=== PATIENT | female | born 1950 | race African-American/Black ===

== ENCOUNTER 2017-08-23 21:23 | Observation (INO) | payer OTHER, MEDICARE ==
[~2017-08-23] VITALS: Ht 170.2 cm; Wt 124.0 kg
[2017-08-23 22:14] LABS: BASOPHILS % (AUTO) 0.6 % (0.0-5.0); EOSINOPHILS % (AUTO) 1.8 % (0.0-8.0); HEMATOCRIT 44.8 % (36-48); LYMPHOCYTES % (AUTO) 17.9 % (21.0-51.0); MEAN CORPUSCULAR HEMOGLOBIN 26.8 pg (27.0-33.0); MEAN CORPUSCULAR HGB CONC 33.2 g/dL (32.0-36.0); MEAN CORPUSCULAR VOLUME 80.7 fL (79-99); MONOCYTES % (AUTO) 6.6 % (3.0-13.0); NEUTROPHILS % (AUTO) 73.1 % (40.0-77.0); PLATELET COUNT (AUTO) 301 K/uL (130-400); RED BLOOD CELL COUNT(AUTO) 5.55 MIL/uL (4.00-5.50); RED CELL DISTRIBUTION WIDTH 15.5 % (11.0-15.5); WHITE BLOOD COUNT (AUTO) 11.4 K/uL (4.8-10.8)
[2017-08-23 22:27] LABS: INR 0.96 (0.85-1.15); PARTIAL THROMBOPLASTIN TIME 29.2 SEC (26.3-35.5); POTASSIUM 3.5 mmol/L (3.5-5.1); PROTHROMBIN TIME 10.1 SEC (9.6-11.6)
[2017-08-23] MEDS ORDERED: MORPHINE SULFATE 4 MG/1ML SYG ONE (22:34)
[2017-08-23] MEDS ORDERED: ONDANSETRON HCL 4 MG/2 ML VIAL ONE (22:34)
[2017-08-23 22:40] LABS: ALBUMIN 3.1 g/dL (3.5-5.0); BILIRUBIN,TOTAL 0.4 mg/dL (0.2-1.0); CREATINE KINASE MB 1.3 ng/mL (0.5-3.6); TOTAL PROTEIN, SERUM 6.8 g/dL (6.0-8.3)
[2017-08-23] MEDS ORDERED: IOPAMIDOL-370 100 ML VIAL IV ONE (23:11)
[2017-08-24] VITALS (7 sets, daily range): BP systolic 118–140; BP diastolic 60–89
[2017-08-24] MEDS ORDERED: GUAIFENESIN-DM 200/20 MG 10 ML PO PRN (01:00)
[2017-08-24] MEDS ORDERED: MORPHINE SULFATE 2 MG/ML 1ML SYG IV PRN (01:00)
[2017-08-24] MEDS ORDERED: LEVOFLOXACIN 500 MG/D5W 100 ML 100 ML IV SCH (01:00)
[2017-08-24] MEDS ORDERED: HYDRALAZINE HCL 20 MG/ML VIAL IV PRN (01:00)
[2017-08-24] MEDS ORDERED: ACETAMINOPHEN 325 MG TAB PO PRN (01:00)
[2017-08-24] MEDS ORDERED: LEVOFLOXACIN 500 MG/D5W 100 ML 100 ML ONE (02:01)
[2017-08-24] MEDS ORDERED: MORPHINE SULFATE 4 MG/1ML SYG ONE ×2 (02:57→09:23)
[2017-08-24] MEDS: IPRATROPIUM/ALBUTEROL SULFATE 3 ML SOLUTION IH SCH ×3 (06:42→19:08)
[2017-08-24] MEDS: NICOTINE 14 MG/ 24 HR PATCH TD SCH (09:12)
[2017-08-24] MEDS: PANTOPRAZOLE SODIUM 40 MG TABLET.DR PO SCH ×2 (09:13→20:44)
[2017-08-24] MEDS: BENZONATATE 100 MG CAPSULE PO SCH ×3 (09:13→20:44)
[2017-08-24] MEDS: ENOXAPARIN SODIUM 40 MG/0.4 ML SYRINGE SQ SCH (09:14)
[2017-08-24] MEDS ORDERED: SODIUM CHLORIDE 0.9% 250 ML IV ONE (09:17)
[2017-08-24] MEDS ORDERED: NITR0.4T50 SL (13:48)
[2017-08-24] MEDS ORDERED: CYCL10 PO (13:48)
[2017-08-24] MEDS ORDERED: NAPR-1023 PO (13:48)
[2017-08-24] MEDS ORDERED: CLOP75TA14 PO (13:48)
[2017-08-24] MEDS ORDERED: CARV25TA77 PO (13:48)
[2017-08-24] MEDS ORDERED: LISI-613 PO (13:48)
[2017-08-24] MEDS ORDERED: ATOR80TA PO (13:48)
[2017-08-24] MEDS ORDERED: TYL3 PO (13:48)
[2017-08-24] MEDS: ACETAMINOPHEN 325 MG TAB PO PRN (14:46)
[2017-08-24] MEDS: NITROGLYCERIN 1GM/1 INCH PACKET TD SCH ×2 (16:34→23:10)
[2017-08-24] MEDS: DOXYCYCLINE HYCLATE 100 MG TABLET PO SCH (20:44)
[2017-08-24] MEDS: METOPROLOL TARTRATE 25 MG TAB PO SCH (20:44)
[2017-08-24 21:29] LABS: CREATINE KINASE, TOTAL 68 U/L (21-232); MYOGLOBIN 30 ng/mL (10-92); TROPONIN I < 0.04 ng/mL (0.00-0.06)
[2017-08-25] MEDS: IPRATROPIUM/ALBUTEROL SULFATE 3 ML SOLUTION IH SCH ×5 (02:02→23:55)
[2017-08-25 03:43] VITALS: BP 144/70
[2017-08-25] MEDS: ACETAMINOPHEN 325 MG TAB PO PRN (04:02)
[2017-08-25] MEDS: NITROGLYCERIN 1GM/1 INCH PACKET TD SCH ×2 (06:21→14:52)
[2017-08-25 06:54] LABS: HEMATOCRIT 42.1 % (36-48); MEAN CORPUSCULAR HGB CONC 33.1 g/dL (32.0-36.0); MEAN CORPUSCULAR VOLUME 81.6 fL (79-99); PLATELET COUNT (AUTO) 286 K/uL (130-400); RED BLOOD CELL COUNT(AUTO) 5.17 MIL/uL (4.00-5.50); RED CELL DISTRIBUTION WIDTH 15.7 % (11.0-15.5); WHITE BLOOD COUNT (AUTO) 9.4 K/uL (4.8-10.8)
[2017-08-25 07:00] LABS: HEMOGLOBIN A1C 5.9 % (4.0-6.0)
[2017-08-25 07:14] LABS: POTASSIUM 4.1 mmol/L (3.5-5.1); THYROID STIMULATING HORMONE 0.88 uIU/mL (0.36-3.74)
[2017-08-25 08:00] VITALS: BP 146/84
[2017-08-25 09:47] LABS: CREATINE KINASE MB 0.5 ng/mL (0.5-3.6); CREATINE KINASE, TOTAL 55 U/L (21-232); MYOGLOBIN 32 ng/mL (10-92); TROPONIN I < 0.04 ng/mL (0.00-0.06)
[2017-08-25 11:00] VITALS: BP 139/79
[2017-08-25] MEDS: ASPIRIN 325MG EC TAB 325 MG TABLET.DR PO SCH (11:23)
[2017-08-25] MEDS: PREDNISONE 20 MG TABLET PO SCH (11:23)
[2017-08-25] MEDS: PANTOPRAZOLE SODIUM 40 MG TABLET.DR PO SCH (11:23)
[2017-08-25] MEDS: METOPROLOL TARTRATE 25 MG TAB PO SCH ×2 (11:24→20:55)
[2017-08-25] MEDS: BENZONATATE 100 MG CAPSULE PO SCH ×3 (11:24→20:55)
[2017-08-25] MEDS: DOXYCYCLINE HYCLATE 100 MG TABLET PO SCH ×2 (11:24→20:55)
[2017-08-25] MEDS: NICOTINE 14 MG/ 24 HR PATCH TD SCH (11:27)
[2017-08-25] MEDS: ENOXAPARIN SODIUM 40 MG/0.4 ML SYRINGE SQ SCH (13:47)
[2017-08-25] MEDS ORDERED: MORPHINE SULFATE 4 MG/1ML SYG ONE (14:04)
[2017-08-25] MEDS: ONDANSETRON HCL 4 MG/2 ML VIAL IV PRN (14:47)
[2017-08-25 16:00] VITALS: BP 155/73
[2017-08-25 20:00] VITALS: BP 130/64
[2017-08-25] MEDS: MORPHINE SULFATE 4 MG/1ML SYG IV PRN (20:56)
[2017-08-25 21:45] LABS: CREATINE KINASE, TOTAL 61 U/L (21-232); MYOGLOBIN 24 ng/mL (10-92); TROPONIN I < 0.04 ng/mL (0.00-0.06)
[2017-08-26] VITALS: BP 111/68
[2017-08-26] MEDS: ACETAMINOPHEN 325 MG TAB PO PRN ×2 (00:18→21:41)
[2017-08-26] MEDS: NITROGLYCERIN 1GM/1 INCH PACKET TD SCH ×4 (00:28→22:58)
[2017-08-26] MEDS: MORPHINE SULFATE 4 MG/1ML SYG IV PRN ×4 (01:07→20:46)
[2017-08-26 04:00] VITALS: BP 107/70
[2017-08-26] MEDS: IPRATROPIUM/ALBUTEROL SULFATE 3 ML SOLUTION IH SCH ×3 (06:00→18:00)
[2017-08-26 08:00] VITALS: BP 113/67
[2017-08-26] MEDS: DOXYCYCLINE HYCLATE 100 MG TABLET PO SCH ×2 (09:49→20:32)
[2017-08-26] MEDS: ASPIRIN 325MG EC TAB 325 MG TABLET.DR PO SCH (09:50)
[2017-08-26] MEDS: PREDNISONE 20 MG TABLET PO SCH (09:50)
[2017-08-26] MEDS: ONDANSETRON HCL 4 MG/2 ML VIAL IV PRN (09:50)
[2017-08-26] MEDS: METOPROLOL TARTRATE 25 MG TAB PO SCH ×2 (09:52→20:32)
[2017-08-26] MEDS: BENZONATATE 100 MG CAPSULE PO SCH ×3 (09:52→20:32)
[2017-08-26] MEDS: NICOTINE 14 MG/ 24 HR PATCH TD SCH (09:54)
[2017-08-26] MEDS: ENOXAPARIN SODIUM 40 MG/0.4 ML SYRINGE SQ SCH (10:01)
[2017-08-26 11:00] VITALS: BP 143/99
[2017-08-26 16:00] VITALS: BP 135/95
[2017-08-26 20:00] VITALS: BP 127/66
[2017-08-27] VITALS: BP 130/68
[2017-08-27] MEDS: MORPHINE SULFATE 4 MG/1ML SYG IV PRN ×2 (02:21→13:45)
[2017-08-27 04:00] VITALS: BP 148/83
[2017-08-27] MEDS: NITROGLYCERIN 1GM/1 INCH PACKET TD SCH (06:33)
[2017-08-27] MEDS: IPRATROPIUM/ALBUTEROL SULFATE 3 ML SOLUTION IH SCH ×3 (06:47→11:27)
[2017-08-27 07:00] VITALS: BP 157/90
[2017-08-27] MEDS ORDERED: DOXY100T2 PO (08:37)
[2017-08-27] MEDS ORDERED: PRED20TA3 PO (08:37)
[2017-08-27] MEDS ORDERED: BENZ-51 PO (08:37)
[2017-08-27] MEDS: ENOXAPARIN SODIUM 40 MG/0.4 ML SYRINGE SQ SCH (09:00)
[2017-08-27] MEDS: ASPIRIN 325MG EC TAB 325 MG TABLET.DR PO SCH (09:36)
[2017-08-27] MEDS: NICOTINE 14 MG/ 24 HR PATCH TD SCH (09:36)
[2017-08-27] MEDS: PREDNISONE 20 MG TABLET PO SCH (09:37)
[2017-08-27] MEDS: METOPROLOL TARTRATE 25 MG TAB PO SCH (09:37)
[2017-08-27] MEDS: DOXYCYCLINE HYCLATE 100 MG TABLET PO SCH (09:37)
[2017-08-27] MEDS: BENZONATATE 100 MG CAPSULE PO SCH ×2 (09:37→13:46)
[2017-08-27] MEDS: PANTOPRAZOLE SODIUM 40 MG TABLET.DR PO SCH (10:41)
[2017-08-27 11:00] VITALS: BP 114/63
== END 2017-08-27 16:25 ==
LOC: EDH 21:23 → EDHIP 08-24 00:35 → 3DH 08-24 01:25
PROVIDERS: ADMIT Family Medicine; ATTEND Family Medicine
DX: R07.89 Other chest pain (principal); I10 Essential (primary) hypertension; E78.5 Hyperlipidemia, unspecified; R79.1 Abnormal coagulation profile; D72.829 Elevated white blood cell count, unspecified; J84.112 Idiopathic pulmonary fibrosis; E66.01 Morbid (severe) obesity due to excess calories; J44.1 Chronic obstructive pulmonary disease with (acute) exacerbation; I25.10 Atherosclerotic heart disease of native coronary artery without angina pectoris; F17.210 Nicotine dependence, cigarettes, uncomplicated; Z82.49 Family history of ischemic heart disease and other diseases of the circulatory system; Z95.5 Presence of coronary angioplasty implant and graft
CPT/HCPCS: 36415 ×3; 71045; 71275; 80048; 80053; 80061; 82550 ×4; 82553 ×4; 83036; 83874 ×4; 84443; 84484 ×4; 85025; 85027; 85378; 85610; 85730; 87040 ×2; 87088; 87449; 87633; 93005; 93306; 94640 ×11; 94664; 96372 ×3; 96374; 96375; 96376 ×2; 97116; 97161; 99285; A6250 ×2; G0378 ×88; G8978; G8979; G8980; G8981; G8982; G8983; J1650 ×3; J1956 ×2; J2270 ×11; J2405 ×3; J7030; Q9967

== ENCOUNTER 2017-09-29 00:50 | Emergency (ER) | payer OTHER, MEDICARE ==
[~2017-09-29 00:50] MED LIST: ATOR80TA PO; BENZ-51 PO; CARV25TA77 PO; CLOP75TA14 PO; CYCL10 PO; DOXY100T2 PO; LISI-613 PO; NAPR-1023 PO; NITR0.4T50 SL; PRED20TA3 PO; TYL3 PO
[2017-09-29] MEDS ORDERED: KETOROLAC TROMETHAMINE 15MG/ML ONE (01:43)
[2017-09-29 02:11] LABS: CREATINE KINASE MB 1.1 ng/mL (0.5-3.6)
== END 2017-09-29 05:57 | disposition home or self-care (01) ==
LOC: EDH 00:50
DX: M25.512 Pain in left shoulder (principal); M25.561 Pain in right knee; M54.5 Low back pain; M25.552 Pain in left hip; R07.9 Chest pain, unspecified; I25.10 Atherosclerotic heart disease of native coronary artery without angina pectoris; E78.5 Hyperlipidemia, unspecified; I10 Essential (primary) hypertension; I25.2 Old myocardial infarction; M19.90 Unspecified osteoarthritis, unspecified site; Z72.0 Tobacco use; W01.0XXA Fall on same level from slipping, tripping and stumbling without subsequent striking against object, initial encounter; Y93.01 Activity, walking, marching and hiking; Y92.89 Other specified places as the place of occurrence of the external cause; Y99.8 Other external cause status
CPT/HCPCS: 36415; 72100; 73030; 73502; 73562 ×2; 82550; 82553; 84484; 93005; 96374; 99285; J1885

== ENCOUNTER 2017-10-04 21:40 | Emergency (ER) | payer OTHER, MEDICARE ==
[2017-10-04] MEDS ORDERED: ASPIRIN 325 MG TABLET ONE (22:06)
== END 2017-10-05 00:09 | disposition left against medical advice (07) ==
LOC: EDH 21:40
DX: F41.1 Generalized anxiety disorder (principal); R07.9 Chest pain, unspecified; I95.9 Hypotension, unspecified; M19.90 Unspecified osteoarthritis, unspecified site; I25.10 Atherosclerotic heart disease of native coronary artery without angina pectoris; E78.5 Hyperlipidemia, unspecified; I10 Essential (primary) hypertension; I25.2 Old myocardial infarction; Z72.0 Tobacco use
CPT/HCPCS: 93005

== ENCOUNTER 2017-10-28 23:29 | Emergency (ER) | payer OTHER, MEDICARE ==
[2017-10-28] MEDS ORDERED: ASPIRIN 325 MG TABLET ONE (23:55)
[2017-10-29 00:14] LABS: EOSINOPHILS % (AUTO) 2.3 % (0.0-8.0); HEMATOCRIT 43.8 % (36-48); LYMPHOCYTES % (AUTO) 25.2 % (21.0-51.0); MEAN CORPUSCULAR HEMOGLOBIN 26.2 pg (27.0-33.0); MEAN CORPUSCULAR HGB CONC 32.9 g/dL (32.0-36.0); MEAN CORPUSCULAR VOLUME 79.6 fL (79-99); MONOCYTES % (AUTO) 8.8 % (3.0-13.0); NEUTROPHILS % (AUTO) 62.7 % (40.0-77.0); PLATELET COUNT (AUTO) 318 K/uL (130-400); RED CELL DISTRIBUTION WIDTH 15.8 % (11.0-15.5); WHITE BLOOD COUNT (AUTO) 10.5 K/uL (4.8-10.8)
[2017-10-29 00:22] LABS: CARBON DIOXIDE 29 mmol/L (21-32); CHLORIDE 106 mmol/L (101-111); CREATININE 0.9 mg/dL (0.5-1.5); GLOMERULAR FILTR. RATE CALC 80 mL/min (>60); GLUCOSE,RANDOM 104 mg/dL (70-105); POTASSIUM 4.3 mmol/L (3.5-5.1); SODIUM SERUM 142 mmol/L (136-145); UREA NITROGEN, BLOOD 16 mg/dL (7-18)
[2017-10-29 00:36] LABS: ALANINE AMINOTRANSFERASE 21 U/L (12-78); ALBUMIN 3.5 g/dL (3.5-5.0); ASPARTATE AMINOTRANSFERASE 24 U/L (10-37); BILIRUBIN,TOTAL 0.6 mg/dL (0.2-1.0); SALICYLATE 4.3 mg/dL (2.8-20.0); TOTAL PROTEIN, SERUM 7.4 g/dL (6.0-8.3)
[2017-10-29 00:41] LABS: ACETAMINOPHEN < 1 mcg/mL (10-30); ALCOHOL, BLOOD < 3 mg/dL (0-10)
[2017-10-29 03:03] LABS: APPEARANCE,URINE Clear (CLEAR); BILIRUBIN,URINE Negative (NEGATIVE); COLOR,URINE Dark Yellow (YELLOW); GLUCOSE, URINE (UA) Negative (NEGATIVE); KETONES,URINE Negative (NEGATIVE); LEUKOCYTE ESTERASE ,URINE Negative (NEGATIVE); NITRATE,URINE Negative (NEGATIVE); OCCULT BLOOD,URINE Negative (NEGATIVE); PROTEIN,URINE Negative (NEGATIVE)
[2017-10-29 03:11] LABS: AMPHET/METH SCREEN,URINE NEGATIVE (NEGATIVE); BARBITURATE SCREEN, URINE NEGATIVE (NEGATIVE); BENZODIAZEPINES SCREEN,URINE NEGATIVE (NEGATIVE); CANNABINOID SCREEN,URINE NEGATIVE (NEGATIVE); COCAINE SCREEN,URINE NEGATIVE (NEGATIVE); OPIATE SCREEN,URINE NEGATIVE (NEGATIVE); PHENCYCLIDINE SCREEN,URINE NEGATIVE (NEGATIVE)
== END 2017-10-29 11:47 | disposition home or self-care (01) ==
LOC: EDH 23:29
DX: R07.89 Other chest pain (principal); F22 Delusional disorders; I25.10 Atherosclerotic heart disease of native coronary artery without angina pectoris; E78.5 Hyperlipidemia, unspecified; I10 Essential (primary) hypertension; I25.2 Old myocardial infarction; M19.90 Unspecified osteoarthritis, unspecified site; Z72.0 Tobacco use
CPT/HCPCS: 36415; 80053; 80305; 81003; 82553; 84484; 85025; 93005 ×2; 99285; G0480 ×2; G0481

== ENCOUNTER 2017-10-31 23:44 | Inpatient (IN) | payer OTHER, MEDICARE ==
[~2017-10-31] VITALS: Ht 167.6 cm; Wt 124.7 kg
[2017-11-01] MEDS ORDERED: ASPIRIN 325 MG TABLET ONE (00:05)
[2017-11-01 00:22] LABS: BASOPHILS % (AUTO) 0.8 % (0.0-5.0); EOSINOPHILS % (AUTO) 3.7 % (0.0-8.0); HEMATOCRIT 43.2 % (36-48); LYMPHOCYTES % (AUTO) 29.8 % (21.0-51.0); MEAN CORPUSCULAR HEMOGLOBIN 26.3 pg (27.0-33.0); MEAN CORPUSCULAR HGB CONC 32.9 g/dL (32.0-36.0); MEAN CORPUSCULAR VOLUME 79.9 fL (79-99); MONOCYTES % (AUTO) 5.5 % (3.0-13.0); NEUTROPHILS % (AUTO) 60.2 % (40.0-77.0); PLATELET COUNT (AUTO) 311 K/uL (130-400); RED CELL DISTRIBUTION WIDTH 15.4 % (11.0-15.5); WHITE BLOOD COUNT (AUTO) 8.2 K/uL (4.8-10.8)
[2017-11-01 00:31] LABS: INR 0.96 (0.85-1.15); PROTHROMBIN TIME 10.1 SEC (9.6-11.6)
[2017-11-01 00:44] LABS: ALBUMIN 3.1 g/dL (3.5-5.0); BILIRUBIN,TOTAL 0.2 mg/dL (0.2-1.0); CREATINE KINASE MB 1.1 ng/mL (0.5-3.6); TOTAL PROTEIN, SERUM 6.5 g/dL (6.0-8.3)
[2017-11-01] MEDS ORDERED: HYDRALAZINE HCL 20 MG/ML VIAL IM PRN (03:45)
[2017-11-01] MEDS ORDERED: NITROGLYCERIN 1GM/1 INCH PACKET TD ONE (05:33)
[2017-11-01] MEDS: NITROGLYCERIN 1GM/1 INCH PACKET TD SCH ×3 (06:00→18:43)
[2017-11-01 06:32] LABS: CHOLESTEROL 171 mg/dL (<200); HDL CHOLESTEROL 54 mg/dL (35-85); LDL DIRECT 99 mg/dL (0-99); TRIGLYCERIDES 172 mg/dL (30-200)
[2017-11-01 08:49] LABS: CREATINE KINASE, TOTAL 71 U/L (21-232); MYOGLOBIN 28 ng/mL (10-92); TROPONIN I < 0.04 ng/mL (0.00-0.06)
[2017-11-01 09:25] VITALS: BP 150/103
[2017-11-01 10:15] VITALS: BP 144/83
[2017-11-01] MEDS: FAMOTIDINE 20MG TAB 20 MG TAB PO SCH (10:20)
[2017-11-01] MEDS: ATORVASTATIN CALCIUM 20 MG TABLET PO SCH (10:20)
[2017-11-01] MEDS: ASPIRIN 325MG EC TAB 325 MG TABLET.DR PO SCH (10:20)
[2017-11-01 11:46] LABS: CREATINE KINASE MB 0.8 ng/mL (0.5-3.6); CREATINE KINASE, TOTAL 52 U/L (21-232); MYOGLOBIN 30 ng/mL (10-92); TROPONIN I < 0.04 ng/mL (0.00-0.06)
[2017-11-01] MEDS: ENOXAPARIN SODIUM 40 MG/0.4 ML SYRINGE SQ SCH (12:24)
[2017-11-01] MEDS ORDERED: CYCLOBENZAPRINE HCL 10 MG TABLET PO PRN (14:45)
[2017-11-01] MEDS ORDERED: NITROGLYCERIN 0.4 MG SL TAB SL PRN (14:45)
[2017-11-01 15:47] VITALS: BP 145/75
[2017-11-01 19:54] VITALS: BP 145/74
[2017-11-01] MEDS: ATORVASTATIN CALCIUM 40 MG TABLET PO SCH (21:00)
[2017-11-01] MEDS: ZOLPIDEM TARTRATE 5 MG TAB PO PRN (21:08)
[2017-11-01] MEDS: CARVEDILOL 25 MG TABLET PO SCH (21:10)
[2017-11-01 23:52] VITALS: BP 144/84
[2017-11-02] MEDS: NITROGLYCERIN 1GM/1 INCH PACKET TD SCH ×4 (00:18→18:00)
[2017-11-02 04:00] VITALS: BP 148/92
[2017-11-02 07:30] VITALS: BP 120/88
[2017-11-02 07:30] LABS: HEMOGLOBIN A1C 6.1 % (4.0-6.0)
[2017-11-02] MEDS: LISINOPRIL 20 MG TABLET PO SCH (08:05)
[2017-11-02] MEDS: ATORVASTATIN CALCIUM 20 MG TABLET PO SCH (08:05)
[2017-11-02] MEDS: ASPIRIN 325MG EC TAB 325 MG TABLET.DR PO SCH (08:05)
[2017-11-02] MEDS: CARVEDILOL 25 MG TABLET PO SCH ×2 (08:08→20:32)
[2017-11-02] MEDS: ENOXAPARIN SODIUM 40 MG/0.4 ML SYRINGE SQ SCH (08:09)
[2017-11-02] MEDS: FAMOTIDINE 20MG TAB 20 MG TAB PO SCH (08:11)
[2017-11-02] MEDS: CLOPIDOGREL BISULFATE 75 MG TAB PO SCH (08:11)
[2017-11-02] MEDS: ACETAMINOPHEN 325 MG TAB PO PRN ×2 (08:19→12:49)
[2017-11-02 11:00] VITALS: BP 130/67
[2017-11-02] MEDS ORDERED: REGADENOSON 0.4 MG/5 ML PF SYG IVP SCH (11:30)
[2017-11-02 19:15] VITALS: BP 153/76
[2017-11-02] MEDS: ATORVASTATIN CALCIUM 40 MG TABLET PO SCH (20:29)
[2017-11-02] MEDS: ZOLPIDEM TARTRATE 5 MG TAB PO PRN (20:29)
[2017-11-02 23:35] VITALS: BP 138/69
[2017-11-03] MEDS: NITROGLYCERIN 1GM/1 INCH PACKET TD SCH ×4 (00:13→18:25)
[2017-11-03 04:15] VITALS: BP 149/89
[2017-11-03 07:12] LABS: HEMATOCRIT 43.5 % (36-48); MEAN CORPUSCULAR HEMOGLOBIN 26.7 pg (27.0-33.0); MEAN CORPUSCULAR HGB CONC 33.6 g/dL (32.0-36.0); MEAN CORPUSCULAR VOLUME 79.3 fL (79-99); PLATELET COUNT (AUTO) 316 K/uL (130-400); RED BLOOD CELL COUNT(AUTO) 5.48 MIL/uL (4.00-5.50); RED CELL DISTRIBUTION WIDTH 15.4 % (11.0-15.5); WHITE BLOOD COUNT (AUTO) 6.6 K/uL (4.8-10.8)
[2017-11-03 07:14] LABS: CREATININE 0.9 mg/dL (0.5-1.5)
[2017-11-03 07:38] LABS: INR 0.96 (0.85-1.15); PARTIAL THROMBOPLASTIN TIME 28.7 SEC (26.3-35.5); PROTHROMBIN TIME 10.1 SEC (9.6-11.6)
[2017-11-03 08:00] VITALS: BP 145/75
[2017-11-03] MEDS: CLOPIDOGREL BISULFATE 75 MG TAB PO SCH (09:00)
[2017-11-03] MEDS: ENOXAPARIN SODIUM 40 MG/0.4 ML SYRINGE SQ SCH (09:00)
[2017-11-03] MEDS: ASPIRIN 81MG TAB.CHEW PO SCH (09:00)
[2017-11-03] MEDS: FAMOTIDINE 20MG TAB 20 MG TAB PO SCH (09:00)
[2017-11-03] MEDS: CARVEDILOL 25 MG TABLET PO SCH ×2 (09:00→21:49)
[2017-11-03] MEDS: LISINOPRIL 20 MG TABLET PO SCH (09:40)
[2017-11-03] MEDS ORDERED: NITROGLYCERIN 5 MG/ML 10 ML VIAL IV ONE (13:35)
[2017-11-03] MEDS ORDERED: BIVALIRUDIN 250 MG/VIAL IV ONE (13:35)
[2017-11-03] MEDS ORDERED: ISOVUE-370 50ML VIAL IV ONE (13:35)
[2017-11-03] MEDS ORDERED: IOPAMIDOL-370 100 ML VIAL IV ONE (13:35)
[2017-11-03] MEDS ORDERED: LIDOCAINE HCL 1% 20 ML VIAL ONE ×2 (14:07→14:39)
[2017-11-03 14:19] VITALS: BP 166/77
[2017-11-03] MEDS ORDERED: MIDAZOLAM HCL 1 MG/ML 2ML VIAL ONE (14:35)
[2017-11-03] MEDS ORDERED: FENTANYL CITRATE PF 50 MCG/1 ML 2ML VIAL ONE (14:35)
[2017-11-03] MEDS ORDERED: LABETALOL HCL 5 MG/ML 20ML VIAL IV ONE (14:58)
[2017-11-03] MEDS ORDERED: HYDRALAZINE HCL 20 MG/ML VIAL ONE (15:02)
[2017-11-03] MEDS ORDERED: SODIUM CHLORIDE 0.9% 1000ML 1,000 ML IV SCH (15:07)
[2017-11-03] MEDS ORDERED: NITROGLYCERIN 0.4 MG SL TAB SL PRN (15:15)
[2017-11-03] MEDS ORDERED: METOPROLOL TARTRATE 1 MG/ML 5ML VIAL IV PRN (15:15)
[2017-11-03] MEDS ORDERED: HYDRALAZINE HCL 20 MG/ML VIAL IV PRN (15:15)
[2017-11-03] MEDS: ACETAMINOPHEN 325 MG TAB PO PRN ×2 (18:25→22:37)
[2017-11-03 20:00] VITALS: BP 129/66
[2017-11-03] MEDS: ATORVASTATIN CALCIUM 40 MG TABLET PO SCH (21:48)
[2017-11-03] MEDS: ZOLPIDEM TARTRATE 5 MG TAB PO PRN (21:48)
[2017-11-04] MEDS: NITROGLYCERIN 1GM/1 INCH PACKET TD SCH ×4 (00:23→18:00)
[2017-11-04 08:00] VITALS: BP 136/78
[2017-11-04] MEDS: FAMOTIDINE 20MG TAB 20 MG TAB PO SCH (09:00)
[2017-11-04] MEDS: ENOXAPARIN SODIUM 40 MG/0.4 ML SYRINGE SQ SCH (09:00)
[2017-11-04] MEDS: CARVEDILOL 25 MG TABLET PO SCH ×2 (11:00→21:00)
[2017-11-04] MEDS: CLOPIDOGREL BISULFATE 75 MG TAB PO SCH (11:01)
[2017-11-04] MEDS: ASPIRIN 81MG TAB.CHEW PO SCH (11:01)
[2017-11-04] MEDS: LISINOPRIL 20 MG TABLET PO SCH (11:01)
[2017-11-04] MEDS ORDERED: FAMO20TA8 PO (14:52)
[2017-11-04] MEDS ORDERED: ZOLP5TAB2 PO (14:52)
[2017-11-04] MEDS ORDERED: ASPI-1005 PO (14:52)
[2017-11-04 16:24] VITALS: BP 142/101
[2017-11-04 20:00] VITALS: BP 147/72
[2017-11-04] MEDS: ATORVASTATIN CALCIUM 40 MG TABLET PO SCH (21:00)
[2017-11-04] MEDS: ZOLPIDEM TARTRATE 5 MG TAB PO PRN (21:09)
[2017-11-04] MEDS: ACETAMINOPHEN 325 MG TAB PO PRN (21:11)
[2017-11-05 04:00] VITALS: BP 142/86
[2017-11-05] MEDS: NITROGLYCERIN 1GM/1 INCH PACKET TD SCH ×3 (06:00→11:57)
[2017-11-05 08:00] VITALS: BP 138/83
[2017-11-05 11:46] VITALS: BP 135/70
[2017-11-05] MEDS: FAMOTIDINE 20MG TAB 20 MG TAB PO SCH (11:47)
[2017-11-05] MEDS: CLOPIDOGREL BISULFATE 75 MG TAB PO SCH (11:48)
[2017-11-05] MEDS: LISINOPRIL 20 MG TABLET PO SCH (11:48)
[2017-11-05] MEDS: ASPIRIN 81MG TAB.CHEW PO SCH (11:48)
[2017-11-05 11:49] VITALS: BP 135/70
[2017-11-05] MEDS: CARVEDILOL 25 MG TABLET PO SCH (11:49)
[2017-11-05] MEDS: ENOXAPARIN SODIUM 40 MG/0.4 ML SYRINGE SQ SCH (11:51)
== END 2017-11-05 15:48 | DRG 287 ==
LOC: EDH 23:44 → EDHIP 11-01 02:00 → OBSVTOIN 11-01 02:00 → 4CH 11-01 07:55
PROVIDERS: ADMIT Family Medicine; ATTEND Family Medicine
PROC: 4A023N7 Measurement of Cardiac Sampling and Pressure, Left Heart, Percutaneous Approach (ICD-10-PCS; principal; 2017-11-03)
PROC: B2151ZZ Fluoroscopy of Left Heart using Low Osmolar Contrast (ICD-10-PCS; 2017-11-03)
PROC: B2111ZZ Fluoroscopy of Multiple Coronary Arteries using Low Osmolar Contrast (ICD-10-PCS; 2017-11-03)
DX: I25.110 Atherosclerotic heart disease of native coronary artery with unstable angina pectoris (principal); E66.01 Morbid (severe) obesity due to excess calories; Z68.41 Body mass index [BMI] 40.0-44.9, adult; E78.5 Hyperlipidemia, unspecified; I10 Essential (primary) hypertension; M19.90 Unspecified osteoarthritis, unspecified site; R94.39 Abnormal result of other cardiovascular function study; R05 Cough; R73.03 Prediabetes; F17.210 Nicotine dependence, cigarettes, uncomplicated; I25.2 Old myocardial infarction; Z82.3 Family history of stroke; Z82.49 Family history of ischemic heart disease and other diseases of the circulatory system; Z90.49 Acquired absence of other specified parts of digestive tract
CPT/HCPCS: 36415; 71045; 78452; 80048; 80053; 80061; 82550; 82553; 83036; 83874; 84484; 85025; 85027; 85610; 85730; 87633; 93005; 93017; 93458; 96374; 99152; 99153; A9500; C1894; J0360; J0583; J1644; J1650; J2250; J2785; J3010; J3490; Q9967

== ENCOUNTER 2017-12-12 21:00 | Observation (INO) | payer OTHER, MEDICARE ==
[~2017-12-12] VITALS: Ht 168.9 cm; Wt 128.2 kg
[~2017-12-12 21:00] MED LIST changes: +ASPI-1005 PO; -DOXY100T2 PO; +FAMO20TA8 PO; -NAPR-1023 PO; -PRED20TA3 PO; +ZOLP5TAB2 PO
[2017-12-12] MEDS ORDERED: ASPIRIN 325 MG TABLET ONE (21:12)
[2017-12-12 21:33] LABS: BASOPHILS % (AUTO) 0.7 % (0.0-5.0); EOSINOPHILS % (AUTO) 3.2 % (0.0-8.0); HEMATOCRIT 40.8 % (36-48); LYMPHOCYTES % (AUTO) 27.1 % (21.0-51.0); MEAN CORPUSCULAR HEMOGLOBIN 26.8 pg (27.0-33.0); MEAN CORPUSCULAR HGB CONC 33.7 g/dL (32.0-36.0); MEAN CORPUSCULAR VOLUME 79.5 fL (79-99); MONOCYTES % (AUTO) 9.5 % (3.0-13.0); NEUTROPHILS % (AUTO) 59.5 % (40.0-77.0); PLATELET COUNT (AUTO) 286 K/uL (130-400); RED BLOOD CELL COUNT(AUTO) 5.13 MIL/uL (4.00-5.50); RED CELL DISTRIBUTION WIDTH 16.6 % (11.0-15.5); WHITE BLOOD COUNT (AUTO) 9.1 K/uL (4.8-10.8)
[2017-12-12 21:40] LABS: POTASSIUM 3.9 mmol/L (3.5-5.1)
[2017-12-12 21:42] LABS: INR 1.02 (0.85-1.15); PARTIAL THROMBOPLASTIN TIME 27.6 SEC (26.3-35.5); PROTHROMBIN TIME 10.7 SEC (9.6-11.6)
[2017-12-12 21:56] LABS: ALBUMIN 3.2 g/dL (3.5-5.0); BILIRUBIN,TOTAL 0.3 mg/dL (0.2-1.0); CREATINE KINASE MB 0.7 ng/mL (0.5-3.6); TOTAL PROTEIN, SERUM 6.7 g/dL (6.0-8.3)
[2017-12-12] MEDS ORDERED: NITROGLYCERIN 1GM/1 INCH PACKET TD SCH (23:15)
[2017-12-12] MEDS ORDERED: HYDROCODONE/ACETAMINOPHEN 5/325 MG TAB PO PRN (23:15)
[2017-12-12] MEDS ORDERED: NITROGLYCERIN 1GM/1 INCH PACKET TD ONE (23:30)
[2017-12-13 02:00] VITALS: BP 152/85
[2017-12-13 03:54] LABS: HEMATOCRIT 38.9 % (36-48); MEAN CORPUSCULAR HEMOGLOBIN 25.9 pg (27.0-33.0); MEAN CORPUSCULAR HGB CONC 32.6 g/dL (32.0-36.0); MEAN CORPUSCULAR VOLUME 79.6 fL (79-99); PLATELET COUNT (AUTO) 261 K/uL (130-400); RED BLOOD CELL COUNT(AUTO) 4.89 MIL/uL (4.00-5.50); WHITE BLOOD COUNT (AUTO) 7.5 K/uL (4.8-10.8)
[2017-12-13 04:24] LABS: ALANINE AMINOTRANSFERASE 21 U/L (12-78); ALBUMIN 2.9 g/dL (3.5-5.0); ASPARTATE AMINOTRANSFERASE 14 U/L (10-37); BILIRUBIN,TOTAL 0.3 mg/dL (0.2-1.0); CARBON DIOXIDE 28 mmol/L (21-32); CHLORIDE 108 mmol/L (101-111); CREATINE KINASE MB 0.6 ng/mL (0.5-3.6); CREATINE KINASE, TOTAL 55 U/L (21-232); GLOMERULAR FILTR. RATE CALC 71 mL/min (>60); GLUCOSE,RANDOM 118 mg/dL (70-105); MYOGLOBIN 45 ng/mL (10-92); POTASSIUM 3.9 mmol/L (3.5-5.1); SODIUM SERUM 142 mmol/L (136-145); TOTAL PROTEIN, SERUM 6.1 g/dL (6.0-8.3); TROPONIN I < 0.04 ng/mL (0.00-0.06); UREA NITROGEN, BLOOD 19 mg/dL (7-18)
[2017-12-13 08:00] VITALS: BP 110/78
[2017-12-13] MEDS ORDERED: PANTOPRAZOLE SODIUM 40 MG TABLET.DR PO SCH (09:00)
[2017-12-13] MEDS ORDERED: ENOXAPARIN SODIUM 40 MG/0.4 ML SYRINGE SQ SCH (09:00)
[2017-12-13 10:27] LABS: CREATINE KINASE MB 0.7 ng/mL (0.5-3.6); CREATINE KINASE, TOTAL 54 U/L (21-232); MYOGLOBIN 47 ng/mL (10-92); TROPONIN I < 0.04 ng/mL (0.00-0.06)
[2017-12-13 11:58] VITALS: BP 189/91
[2017-12-13] MEDS ORDERED: CARVEDILOL 25 MG TABLET PO SCH (21:00)
[2017-12-14] MEDS ORDERED: LISINOPRIL 20 MG TABLET PO SCH (09:00)
== END 2017-12-13 17:35 | disposition home or self-care (01) ==
LOC: EDH 21:00 → INTOOBSV 22:27 → EDHIP 22:27 → 3CH 12-13 01:15
PROVIDERS: ADMIT Internal Medicine Nephrology; ATTEND Internal Medicine Nephrology
DX: R07.89 Other chest pain (principal); Z95.5 Presence of coronary angioplasty implant and graft; I10 Essential (primary) hypertension; G89.29 Other chronic pain; I25.10 Atherosclerotic heart disease of native coronary artery without angina pectoris; E78.5 Hyperlipidemia, unspecified; I25.2 Old myocardial infarction; Z82.3 Family history of stroke; Z82.49 Family history of ischemic heart disease and other diseases of the circulatory system; F17.210 Nicotine dependence, cigarettes, uncomplicated; F32.9 Major depressive disorder, single episode, unspecified; E66.9 Obesity, unspecified
CPT/HCPCS: 36415 ×2; 71045; 80053 ×2; 82550 ×3; 82553 ×3; 83874 ×3; 84484 ×3; 85025; 85027; 85610; 85730; 93005 ×2; 96372; 99285; G0378 ×19; J1650; C9113

== ENCOUNTER 2018-06-21 20:46 | Observation (INO) | payer OTHER, MEDICARE ==
[~2018-06-21] VITALS: Ht 167.6 cm; Wt 126.6 kg
[2018-06-21 21:34] LABS: BASOPHILS % (AUTO) 0.9 % (0.0-5.0); EOSINOPHILS % (AUTO) 1.7 % (0.0-8.0); HEMATOCRIT 46.1 % (36-48); LYMPHOCYTES % (AUTO) 25.2 % (21.0-51.0); MEAN CORPUSCULAR HGB CONC 32.9 g/dL (32.0-36.0); MEAN CORPUSCULAR VOLUME 81.9 fL (79-99); MONOCYTES % (AUTO) 6.5 % (3.0-13.0); NEUTROPHILS % (AUTO) 65.7 % (40.0-77.0); PLATELET COUNT (AUTO) 310 K/uL (130-400); RED BLOOD CELL COUNT(AUTO) 5.62 MIL/uL (4.00-5.50); RED CELL DISTRIBUTION WIDTH 16.4 % (11.0-15.5)
[2018-06-21 21:47] LABS: CREATININE 1.2 mg/dL (0.5-1.5); POTASSIUM 3.8 mmol/L (3.5-5.1)
[2018-06-21 21:50] LABS: INR 0.95 (0.85-1.15); PARTIAL THROMBOPLASTIN TIME 29.4 SEC (26.3-35.5)
[2018-06-21 22:00] LABS: ALBUMIN 3.3 g/dL (3.5-5.0); BILIRUBIN,TOTAL 0.3 mg/dL (0.2-1.0)
[2018-06-21] MEDS ORDERED: ASPIRIN 325MG EC TAB 325 MG TABLET.DR PO STA (23:28)
[2018-06-22 01:15] VITALS: BP 140/100
[2018-06-22] MEDS ORDERED: SODIUM CHLORIDE 0.9% 1000ML 1,000 ML IV SCH (01:24)
[2018-06-22] MEDS ORDERED: NITROGLYCERIN 0.4 MG SL TAB SL PRN ×2 (01:30→06:15)
[2018-06-22] MEDS ORDERED: ONDANSETRON HCL 4 MG/2 ML VIAL IV PRN (01:30)
[2018-06-22] MEDS ORDERED: ACETAMINOPHEN 325 MG TAB PO PRN (01:30)
[2018-06-22] MEDS ORDERED: SODIUM CHLORIDE 0.9% 1000ML 1,000 ML IV ONE (01:57)
[2018-06-22] MEDS ORDERED: MAGNESIUM 2GM PREMIX 50ML 50 ML IV ONE (01:57)
[2018-06-22] MEDS: MAGNESIUM 2GM PREMIX 50ML 50 ML IV PRN ×2 (02:33→07:58)
[2018-06-22 03:25] VITALS: BP_SYST 165; BP_SYST 178; BP_DIAS 95; BP_DIAS 96
[2018-06-22 04:59] LABS: BASOPHILS % (AUTO) 0.7 % (0.0-5.0); EOSINOPHILS % (AUTO) 2.2 % (0.0-8.0); HEMATOCRIT 44.4 % (36-48); LYMPHOCYTES % (AUTO) 24.3 % (21.0-51.0); MEAN CORPUSCULAR HEMOGLOBIN 26.3 pg (27.0-33.0); MEAN CORPUSCULAR HGB CONC 32.3 g/dL (32.0-36.0); MEAN CORPUSCULAR VOLUME 81.4 fL (79-99); MONOCYTES % (AUTO) 8.8 % (3.0-13.0); PLATELET COUNT (AUTO) 274 K/uL (130-400); RED BLOOD CELL COUNT(AUTO) 5.45 MIL/uL (4.00-5.50); WHITE BLOOD COUNT (AUTO) 10.4 K/uL (4.8-10.8)
[2018-06-22 05:20] LABS: ALANINE AMINOTRANSFERASE 24 U/L (12-78); ALBUMIN 3.1 g/dL (3.5-5.0); ASPARTATE AMINOTRANSFERASE 12 U/L (10-37); BILIRUBIN,TOTAL 0.3 mg/dL (0.2-1.0); CARBON DIOXIDE 28 mmol/L (21-32); CHLORIDE 105 mmol/L (101-111); CHOLESTEROL 158 mg/dL (<200); CREATINE KINASE, TOTAL 34 U/L (21-232); CREATININE 1.1 mg/dL (0.5-1.5); GLOMERULAR FILTR. RATE CALC 63 mL/min (>60); GLUCOSE,RANDOM 103 mg/dL (70-105); HDL CHOLESTEROL 48 mg/dL (35-85); LDL DIRECT 86 mg/dL (0-99); MYOGLOBIN 29 ng/mL (10-92); SODIUM SERUM 141 mmol/L (136-145); TOTAL PROTEIN, SERUM 6.5 g/dL (6.0-8.3); TRIGLYCERIDES 178 mg/dL (30-200); TROPONIN I < 0.04 ng/mL (0.00-0.06); UREA NITROGEN, BLOOD 19 mg/dL (7-18)
[2018-06-22 07:51] VITALS: BP 144/83
[2018-06-22] MEDS ORDERED: CARVEDILOL 25 MG TABLET PO SCH (09:00)
[2018-06-22] MEDS ORDERED: ASPIRIN 81MG TAB.CHEW PO SCH (09:00)
[2018-06-22] MEDS ORDERED: LISINOPRIL 20 MG TABLET PO SCH (09:00)
[2018-06-22] MEDS ORDERED: ASPIRIN 325MG EC TAB 325 MG TABLET.DR PO SCH (09:00)
[2018-06-22] MEDS ORDERED: ENOXAPARIN SODIUM 40 MG/0.4 ML SYRINGE SQ SCH (09:00)
[2018-06-22] MEDS ORDERED: PANTOPRAZOLE SODIUM 40 MG TABLET.DR PO SCH (09:00)
[2018-06-22] MEDS ORDERED: CLOPIDOGREL BISULFATE 75 MG TAB PO SCH (09:00)
[2018-06-22 10:17] LABS: CREATINE KINASE, TOTAL 31 U/L (21-232); MYOGLOBIN 30 ng/mL (10-92); TROPONIN I < 0.04 ng/mL (0.00-0.06)
[2018-06-22 11:09] LABS: APPEARANCE,URINE Clear (CLEAR); BILIRUBIN,URINE Negative (NEGATIVE); COLOR,URINE Yellow (YELLOW); GLUCOSE, URINE (UA) Negative (NEGATIVE); KETONES,URINE Negative (NEGATIVE); LEUKOCYTE ESTERASE ,URINE Negative (NEGATIVE); NITRATE,URINE Negative (NEGATIVE); OCCULT BLOOD,URINE Negative (NEGATIVE); PROTEIN,URINE Negative (NEGATIVE); UROBILINOGEN,URINE 0.2 mg/dL (0.2-1.0)
[2018-06-22 11:16] LABS: AMPHET/METH SCREEN,URINE NEGATIVE (NEGATIVE); BARBITURATE SCREEN, URINE NEGATIVE (NEGATIVE); BENZODIAZEPINES SCREEN,URINE NEGATIVE (NEGATIVE); CANNABINOID SCREEN,URINE NEGATIVE (NEGATIVE); COCAINE SCREEN,URINE NEGATIVE (NEGATIVE); OPIATE SCREEN,URINE NEGATIVE (NEGATIVE); PHENCYCLIDINE SCREEN,URINE NEGATIVE (NEGATIVE)
[2018-06-22 11:30] VITALS: BP 145/73
[2018-06-22] MEDS ORDERED: ATORVASTATIN CALCIUM 40 MG TABLET PO SCH (21:00)
== END 2018-06-22 17:10 | disposition home or self-care (01) ==
LOC: EDH 20:46 → EDHIP 23:26 → 4AH 06-22 01:03
PROVIDERS: ADMIT Internal Medicine; ATTEND Internal Medicine
DX: R07.89 Other chest pain (principal); R19.7 Diarrhea, unspecified; E66.01 Morbid (severe) obesity due to excess calories; E78.00 Pure hypercholesterolemia, unspecified; E78.5 Hyperlipidemia, unspecified; I10 Essential (primary) hypertension; F17.210 Nicotine dependence, cigarettes, uncomplicated; Z68.42 Body mass index [BMI] 45.0-49.9, adult
CPT/HCPCS: 36415 ×2; 71045; 80053 ×2; 80061; 80305; 81003; 82550 ×3; 83690; 83735; 83874 ×3; 84484 ×3; 85025 ×2; 85610; 85730; 87804 ×2; 93005 ×2; 96365; 96366; 96372; 99284; G0378 ×18; J1650; J3475; J7030